=== PATIENT | female | born 2000 | race Two or more races ===

== ENCOUNTER 2023-12-03 15:47 | Emergency (ER) | payer BC, SELFPAY ==
[2023-12-03 15:54] VITALS: BP 130/89
[2023-12-03 16:35] VITALS: BMI 18.6
[2023-12-03 16:41] LABS: % Basophils 0.7 % (0-2); % Eosinophils 1.1 % (0-6); % Immature Granulocytes 0.3 % (0-0.5); % Lymphocytes 27.4 % (20.5-51.1); % Monocytes 8.1 % (1.7-9.3); % Neutrophils 62.4 % (42.2-75.2); Absolute Basophils 0.1 10^3/uL (0-0.2); Absolute Eosinophils 0.1 10^3/uL (0-0.7); Absolute Monocytes 0.6 10^3/uL (0.1-0.6); Absolute Neutrophils 4.5 10^3/uL (1.4-6.5); Hematocrit 39.7 % (37.0-47.0); Hemoglobin 13.8 g/dL (12.0-16.0); Mean Corp Hgb Conc. 34.8 g/dL (33.0-37.0); Mean Corpuscular Hgb 29.8 pg (27.0-31.0); Mean Corpuscular Volume 85.7 fL (81.0-99.0); Mean Platelet Volume 9.3 fL (7.4-10.4); Nucleated Red Blood Cells % 0 %; Platelet Count 350 10^3/uL (130-400); Red Blood Cell Count 4.63 10^6/uL (4.20-5.40); Red Cell Dist. Width 12.1 % (11.5-14.5); White Blood Cell Count 7.3 10^3/uL (4.8-10.8)
[2023-12-03] MEDS: NSS 1000 IV (16:44)
--- NOTE | 2023-12-03 16:54 | EDRN ---
the pt is shaking her legs in stretcher, no s/s of distress, the pt states that she is 'just anxious and needs to calm down', Maria Elena Thomas CARE TRANSITION MGR currently at the pts bedside speaking with the pt and the pts parents
[2023-12-03 17:01] LABS: ALT (SGPT) 18 U/L (0-35); AST (SGOT) 20 U/L (14-36); Albumin 5.1 g/dl (3.5-5.0); Alkaline Phosphatase 86 U/L (38-126); Blood Urea Nitrogen 10 mg/dl (7-17); Calcium 10.4 mg/dl (8.4-10.2); Carbon Dioxide 25 mmol/L (22-30); Chloride 104 mmol/L (98-107); Estimated Creatinine Clearance 92 ml/min; Glucose 90 mg/dl (70-99); Potassium 3.8 mmol/L (3.5-5.1); Sodium 140 mmol/L (135-145); Total Bilirubin 0.9 mg/dl (0.2-1.3); Total Protein 7.8 g/dl (6.3-8.2); eGFR > 60.00
[2023-12-03] MEDS: ZOFRAN 4 MG IV (17:15)
[2023-12-03 17:38] LABS: Urine Albumin Trace (Neg - Trace); Urine Bilirubin 1+ (Negative); Urine Character Clear (Clear); Urine Color Yellow; Urine Glucose Negative (Negative); Urine Ketone 2+ (Negative); Urine Leukocyte Trace (Negative); Urine Nitrite Negative (Negative); Urine Occult Blood Negative (Negative); Urine Urobilinogen Negative (Neg - 1+)
[2023-12-03 17:47] VITALS: BP 127/71
[2023-12-03 17:47] LABS: Urine Mucus Many; Urine Squamous Cell 16-20 /LPF (Few)
[2023-12-03 17:48] LABS: Urine Bacteria Few (Negative); Urine Red Blood Cell 0-2 /HPF (0-2); Urine White Cell 0-2 /HPF (0-5)
--- NOTE | 2023-12-03 17:56 | EDRN ---
the pts mother and father stated to this RN, 'We want her to have TPN, she needs food', per the provider Maria Elena Thomas NP the pt will not be receiving TPN in the Emergency Room, the pt was offered crisis services multiple times, the pt and the pts
parents both refused to be referred to crisis
--- NOTE | 2023-12-03 19:51 | ED.GENMED ---
History of Present Illness
General
Chief Complaint: Anxiety
Source: patient and family
Exam Limitations: none
Time Seen by Provider: 12/03/23 16:48
Nursing documentation reviewed up to this point in time: agreed with
Travel History
Have you had any contact with someone who has COVID-19?: No
Do you have any symptoms of coronavirus? Fever > 100 degrees, chills, cough, shortness of breath, sore throat, loss of taste or smell, muscle aches, or headache?: No
History of Present Illness
History of Present Illness:
Patient sent to ED by her private psychiatrist for IVF. According to patient and mother, patient suffers from severe anxiety. Has lost any interest in eating. States the thought of food makes her feel sick. According to mother this has been going
on for some time that she has been under care of a therapist and psychiatrist. State that she has recently had medication changes. She is restarting with a prior psychiatrist. This provider sent her to the ED for IVF, will see her in office
tomorrow. Patient denies any pain. Reports feeling anxious all of the time. No SI/HI.
Past History
Past History
ED Past Medical History: Psychiatric (anxiety)
Review of Systems
Review of Systems
Allergies reviewed?: Yes
All Other Systems: ROS reviewed and negative except as documented in HPI and ROS
Constitutional: Reports weight loss
EENT: Reports no symptoms
Respiratory: Reports no symptoms
Cardiac: Reports no symptoms
ABD/GI: Reports nausea and anorexia
: Reports no symptoms
Musculoskeletal: Reports no symptoms
Skin: Reports no symptoms
Neurological: Reports no symptoms
Psychiatric: Reports anxiety
Phy Exam
General Physical Exam
General Presentation: well appearing and mild distress
General age: appears stated age
General Skin: warm and dry
General Habitus: normal
General Mental: alert
General Hydration: appears well hydrated
Gastrointestinal Exam
Gastrointestinal Exam: non tender and soft
Musculoskeletal Exam
Musculoskeletal Exam: full ROM
Skin Exam
Skin Exam: normal color, warm/dry and no rash
Psychiatric Exam
Psychiatric Exam: normal mood/affect
Course
Orders/Labs/Results
Orders:
Orders
12/03/23 16:27
0.9% Sodium Chloride 1000 ml [Nss] 1,000 ml IV BOLUS
12/03/23 16:35
CMP [Comprehensive Metabolic Panel] Urgent
Complete Blood Count/With Diff Urgent
Urinalysis Reflex To Culture Urgent
Date Specimen was Collected: 12/03/23
Time Specimen was Collected: 16:27
Urine Microscopic Reflex Cult Urgent
12/03/23 16:58
Ondansetron Injectable [Zofran] 4 mg IV NOW STA
Abnormal Lab Results
12/03/23
16:35
Calcium 10.4 H mg/dl
(8.4-10.2)
Albumin 5.1 H g/dl
(3.5-5.0)
Urine Ketones 2+ A
(Negative)
Urine Bilirubin 1+ A
(Negative)
Leukocyte Esterase Rfl Trace A
(Negative)
Urine Bacteria (Reflex) Few A
(Negative)
12/03/23 16:35
12/03/23 16:35
Vital Signs
Initial and Last Documented VS:
Initial Vital Signs
Temp Pulse Resp BP Pulse Ox
98.4 F 95 16 130/89 100
12/03/23 15:54 12/03/23 15:54 12/03/23 15:54 12/03/23 15:54 12/03/23 15:54
Last Documented Vital Signs
Temp Pulse Resp BP Pulse Ox
98.1 F 72 16 127/71 100
12/03/23 17:47 12/03/23 17:47 12/03/23 17:47 12/03/23 17:47 12/03/23 17:47
*Critical Care Note
Total Time (30-74mins, 75-104mins- exclusive of procedures): Not Applicable
Update Note
Update Note:
Patient to ED for IVF as recommended by her psychiatrist. Long history of anxiety. States she has not been able to eat due to her anxiety. She appears well, in no distress. No hx si/HI. Offered crisis intervention multiple times (RN also
offered) but declined by pateint and mother. THey are comfortable followup with private psychiatrist tomorrow as planned.
ED Attending Note
-
Portions of this chart may have been created with voice recognition software.� Occasional wrong word or��sound alike� substitutions may have occurred due to the inherent limitations of voice recognition software.
Discharge Plan
Departure
Patient Disposition: Home (Routine Discharge)
Date of Disposition: 12/03/23
Time of Disposition: 17:58
Patient with high blood pressure during this ER visit?: No
Condition: Fair
Covid-19: Not Applicable
Discharge Problem:
Anxiety, Anorexia
Instructions: Anxiety, Adult (DC)
Prescriptions:
No Action
cetirizine [Zyrtec] 10 mg Tablet
10 mg PO DAILY
fluoxetine [Prozac] 10 mg Tablet
10 mg PO DAILY
alprazolam [Xanax] 0.25 mg Tablet
0.75 mg PO TID
buspirone 10 mg Tablet
10 mg PO BID
doxycycline hyclate 100 mg Tablet
100 mg PO DAILY
Referrals:
UNKNOWN - PT DOES,NOT KNOW [Family Provider] -
Activity Restrictions/Additional Instructions:
Follow up with your psychiatrist tomorrow as scheduled. Crisis is available to you here 25/02. Please return to the emergency department for crisis assistance at any time.
Interventions
Interventions:
*Risk Screen - Suicide Last Done: 12/03/23 18:03
*General Assessment Last Done: 12/03/23 16:35
*Neglect/Abuse Screening Last Done: 12/03/23 16:35
ED- Fall Risk Assessment Last Done: 12/03/23 16:35
*ED COVID-19 Vaccine History Last Done: 12/03/23 16:35
*Nursing Disposition Last Done: 12/03/23 18:03
KI-Zxvlmq-Gxedocumkm Assessment Last Done: 12/03/23 16:35
ED-Psychological Assessment Last Done: 12/03/23 16:35
Discharge Date and Time
Discharge Date/Time: 12/03/23 18:04
Print Language: SAMOAN
== END 2023-12-03 18:04 | disposition home or self-care (01) ==
LOC: EMR 15:47
PROVIDERS: Emergency Medicine; EMERGENCY PHYSICIAN Emergency Medicine
DX: F41.9 Anxiety disorder, unspecified (principal); R63.0 Anorexia
CPT/HCPCS: 99283; 96374; 96361; 80053; 81003; 81015; 85025